=== PATIENT | male | born 1995 | race Hispanic/Latino ===

== ENCOUNTER 2020-06-14 16:10 | Emergency (ER) | payer OTHER ==
[~2020-06-14] VITALS: Ht 177.8 cm; Wt 115.3 kg
[2020-06-14] MEDS ORDERED: SODIUM CHLORIDE 0.9% 1000ML 1,000 ML IV SCH (19:15)
[2020-06-14] MEDS ORDERED: INSULIN REGULAR, HUMAN 100 UNIT/1 ML 3ML VIAL IV ONE (19:15)
[2020-06-14] MEDS ORDERED: SODIUM CHLORIDE 0.9% 1000ML 1,000 ML ONE (19:21)
[2020-06-14] MEDS ORDERED: INSULIN REGULAR, HUMAN 100 UNIT/1 ML 3ML VIAL ONE (19:22)
[2020-06-14] MEDS ORDERED: GLUCOPHAGE500 MG PO ×2 (21:03→21:19)
[2020-06-14] MEDS ORDERED: IBUPROFEN400 MG PO (21:04)
[2020-06-14] MEDS ORDERED: IBUPROFEN600 MG PO ×2 (21:06→21:19)
== END 2020-06-14 21:25 | disposition home or self-care (01) ==
LOC: FSED 16:45
DX: S93.402A Sprain of unspecified ligament of left ankle, initial encounter (principal); W01.0XXA Fall on same level from slipping, tripping and stumbling without subsequent striking against object, initial encounter; Y93.01 Activity, walking, marching and hiking; Y99.0 Civilian activity done for income or pay; E11.65 Type 2 diabetes mellitus with hyperglycemia; R63.1 Polydipsia; R35.1 Nocturia
CPT/HCPCS: 36415; 73610; 73630; 82948; 99284; J1817; J7030